=== PATIENT | male | born 1970 | race Caucasian/White ===

== ENCOUNTER 2024-12-31 08:01 | Inpatient (IN) ==
[2024-12-31 08:49] LABS: Basophils%(Percent) Auto 0.2 (0.0-1.3); Eosinophils%(Percent) Auto 0.1 % (0.0-4.0); Granulocytes % - Auto 83.9 % (49.1-73.1); Granulocytes#(Absolute)- Auto 7.5 (2.0-6.2); Hematocrit 39.7 % (41.3-50.1); Mean Corpuscular Volume 92.1 fl (81.9-96.5); Monocytes #(Absolute)- Auto 0.7 (0.2-0.8); Monocytes %(Percent)- Auto 7.8 % (4.5-10.7); Platelet Count 98 K/uL (142-355); White Blood Count 8.9 K/uL (3.7-9.6)
[2024-12-31] MEDS: KETOROLAC 30 MG/ML INJ VIAL IVP ONE (08:52)
[2024-12-31] MEDS: 0.9 % SODIUM CHLORIDE 500 ML IV ONE (08:53)
[2024-12-31] MEDS: 0.9 % SODIUM CHLORIDE 1000 ML 1,000 ML IV SCH ×2 (08:53→13:10)
[2024-12-31 08:59] LABS: Potassium 3.1 mmol/L (3.6-5.2)
--- NOTE | 2024-12-31 09:16 | Emergency Department Note ---
HPI - URI/Sore Throat General Chief Complaint: Fever Stated Complaint: FEVER Source: patient, family (sister) and medical record Limitations: no limitations History of Present Illness HPI Narrative: 54-year-old ER stay that has had over a week of cough fever and production of cough. 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 No other significant medical history did have adenoid septal surgery approximately a month ago complications at that time. Related Data Allergies Allergy/AdvReac Type Severity Reaction Status Date / Time erythromycin base Allergy Verified 12/31/24 08:43 Review of Systems Status of ROS 10 or more systems reviewed and unremark able except as noted in h istory and below Constitutional Reports: fever, chills, fatigue, malaise and change in sleep pattern; Denies: night sweats Eyes Denies: change in vision, blurry vision, blind spots, light sensitivity, eye discomfort or eye discharge Ears, nose, mouth, and throat Reports: dry mouth; Denies: throat pain, neck pain, throat swelling, difficulty swallowing, hoarseness, mouth pain, swelling of lips/tongue, ear discharge or change in hearing (CHRONIC HEARNG LOSS) Cardiovascular Denies: chest pain, palpitations, edema, swelling of feet/ankles, lightheadedness or shortness of breath with exertion Respiratory Reports: shortness of breath and cough; Denies: wheezing, stridor, pain on inspiration or change in phlegm color Gastrointestinal Reports: difficulty swallowing; Denies: abdominal pain, nausea, vomiting, coffee grounds in vomit, heartburn, diarrhea, constipation, bloating, feeling full early, change in bowel habits, painful bowel movements, rectal pain, rectal swelling or change in stool character Genitourinary Denies: painful urination, urinary frequency, urinary urgency, blood in urine, genital pain, genital lesion, penile discharge, testicular pain, testicular mass, scrotal swelling, difficulty urinating or decreased urine ouput Musculoskeletal Reports: back pain and muscle weakness (MUSCLE STIFFNESS); Denies: neck pain, extremity pain, extremity swelling or joint pain Integumentary/Breast Reports: nail changes; Denies: skin swelling, non-healing lesion, acne or breast swelling Neurological Reports: lack of coordination and difficulty communicating thoughts; Denies: involuntary movements Psychiatric Reports: mood swings and paranoia; Denies: panic attacks, suicidal ideation or homicidal ideation Endocrine Reports: fatigue; Denies: excessive urination, excessive thirst, cold intolerance, excessive sweating, flushing or heat intolerance Hematologic/Lymphatic Denies: easy bruising, easy bleeding or enlarged lymph nodes Allergic/Immunologic Denies: hives, throat swelling, tongue swelling, facial swelling, wheezing or itchy eyes PFSH PFS Medical History Chronic low back pain HTN (hypertension) Surgical History History of cholecystectomy Social History Feel stressed/tense/nervous/anxious/difficulty sleeping: to some extent Due to disability, difficulty making decisions: Yes Exam Constitutional: normal general appearance, no apparent distress, abnormal body habitus (obese), no limitations and alert Vital Signs - 24 hr 12/31/24 08:10 Temperature 101.3 F H Pulse Rate 114 H Respiratory Rate 20 Blood Pressure 123/76 Pulse Oximetry 98 Oxygen Delivery Me thod Room Air HENMT: normocephalic, head/scalp atraumatic, hearing grossly normal bilaterally, external ears normal, EACs normal, TMs abnormal, nasal mucous membranes abnormal (pale) and (nasal discharge), oral mucous membranes abnormal and oropharynx abnormal (erythema) Eyes: PERRL, EOMs intact bilaterally, conjunctivae normal, no scleral icterus, papilledema noted and periorbital findings normal Neck/C-Spine: visual inspection normal, trachea midline, cervical spine nontender, cervical full ROM noted, supple and thyroid normal Lymph: no lymphadenopathy noted and no lymphedema noted Chest: inspection of chest normal and palpation of chest normal Respiratory: breath sounds equal bilaterally, normal respiratory effort, clear to auscultation bilaterally, no wheezes, no rales, no retractions and no use of accessory muscles Cardiovascular: heart rate abnormal (tachycardic), regular rhythm noted, no gallop, no rub, no murmur, no JVD, no clicks, peripheral pulses 2+ throughout and no bruits noted Gastrointestinal: abdomen abnormal to inspection (obese), abdomen soft to palpation, nontender to palpation, nontender to percussion, nondistended, normoactive bowel sounds, no hepatosplenomegaly and no ascites Genitourinary: no CVA tenderness, bladder normal to palpation, penis normal and circumcised Back/Pelvis: spine normal to inspection, no thoracic spine tenderness, no lumbar spine tenderness, thoracic spine ROM normal and lumbar spine ROM normal Extremities: normal to inspection, normal to palpation, no tenderness, full ROM, no joint enlargement and no deformity Neurology: director state pharmacy II-XII intact, no movement abnormality noted, no focal motor deficit noted, sensory deficit noted, deep tendon reflexes 2+ bilaterally and gait abnormality noted Psychiatry: Mental Status Exam documented within this Exam's Psych section mental status grossly normal, oriented x3, thought process abnormality noted, cooperative, affect normal, psychomotor activity normal and memory normal Feel stressed/tense/nervous/anxious/difficulty sleeping: not at all Skin: skin color abnormal Reports (pale), no rash, no lesions, no ecchymosis noted, skin turgor abnormal Reports (tenting), no petechiae, no mottling, nails abnormality noted and alopecia noted Course Course Hospital Course: Patient's fever was 200 pounds at time of discharge, Heart rate improving down to the 102 patient states his improved although he still having chills and is appreciating the 1 morning. 9 out of 10 to a 2 out of 10 in his back. Patient's cough is improved Vital Signs Vital signs: Vital Signs Temperature 101.3 F H 12/31/24 08:10 Pulse Rate 114 H 12/31/24 08:10 Respiratory Rate 20 12/31/24 08:10 Blood Pressure 123/76 12/31/24 08:10 Pulse Oximetry 98 12/31/24 08:10 Oxygen Delivery Method Room Air 12/31/24 08:10 Temperature 101.3 F H 12/31/24 08:10 Pulse Rate 114 H 12/31/24 08:10 Respiratory Rate 20 12/31/24 08:10 Blood Pressure 123/76 12/31/24 08:10 Pulse Oximetry 98 12/31/24 08:10 Oxygen Delivery Method Room Air 12/31/24 08:10 MDM - URI/Sore Throat MDM Narrative Medical Decision Making Narrative: Patient has a smoking history, his sister history of sleep apnea COPD, obstructive airway, UTI, pyelonephritis, pain, Differential Diagnosis Upper Respiratory Differential Diagnosis: upper respiratory infection, otitis media, sinusitis, viral infection, bronchitis, influenza and pharyngitis Lab Data Attestation: I reviewed the patient's lab results. Labs: Lab Results 12/31/24 Range/Units 08:40 WBC 8.9 (3.7-9.6) K/uL RBC 4.3 L (4.40-5.80) M/uL Hgb 13.8 L (14.0-17.4) gm/dL Hct 39.7 L (41.3-50.1) % MCV 92.1 (81.9-96.5) fl MCH 32.1 (27.6-33.7) pg MCHC 34.9 (33.0-35.7) g/dl RDW 13.5 (11.0-14.8) % Plt Count 98 L (142-355) K/uL MPV 7.9 (6.0-10.4) fl Gran % 83.9 H (49.1-73.1) % Lymph % (Auto) 8.0 L (17.6-39.05) % [place] % (Auto) 7.8 (4.5-10.7) % Eos % (Auto) 0.1 (0.0-4.0) % Baso % (Auto) 0.2 (0.0-1.3) Lymph # (Auto) 0.7 L (0.8-2.9) [place] # (Auto) 0.7 (0.2-0.8) Eos # (Auto) 0.0 (0.0-0.3) Baso # (Auto) 0.0 (0.0-0.1) Absolute Gran (auto) 7.5 H (2.0-6.2) Sodium 135 L (136-145) mmol/L Potassium 3.1 L (3.6-5.2) mmol/L Chloride 100.0 (98-107) mmol/L Carbon Dioxide 24 (21-32) mmol/L Anion Gap 11.0 (4-14) mEq/L BUN 17 (7-18) mg/dL Creatinine 1.1 (0.6-1.3) mg/dL Estimated GFR 80.8 (>59.9) Glucose 109 (70-110) mg/dL Lactic Acid 1.1 (0.27-1.43) mmol/L Calcium 8.0 L (8.5-10.1) mg/dL Total Bilirubin 0.90 (0.0-1.0) mg/dL AST 12 L (15-37) U/L ALT 22 L (30-65) U/L Alkaline Phosphatase 62 (50-136) U/L Total Protein 6.0 L (6.4-8.2) g/dL Albumin 3.1 L (3.4-5.0) g/dL COVID-19 (PUSHPA) Not detected (Not Detectd) Influenza Type A Ag Negative (Negative) Influenza Type B Ag Negative (Negative) Respiratory Virus Ag Negative (Negative) Imaging Data Attestation imaging: I have reviewed the pertinent imaging results. Radiologist Impression: XR CHEST 2V HISTORY: cough, fever, dyspneacough, fever, dyspnea; COMPARISON: None FINDINGS: The trachea is midline. The cardiac silhouette is borderline in size. A moderate area of alveolar infiltrate is at right upper lobe. A 2.4 cm right lateral hilar lung mass is seen. The rest of lungs are clear without focal infiltrate or effusion. The bony thorax is unremarkable. IMPRESSION: Right upper lobe pneumonia with probable right hilar lung mass or adenopathy. Chest CT recommended. ECG Data Attestation ECG: I have reviewed the pertinent ECG results. Prior ECG tracings: not available for review Interpretation: EKG-sinus tachycardia, rate 104, RR 576, W[place] 163 Discharge Plan Discharge Condition: Stable Clinical Impression: Community acquired pneumonia, Adenopathy, hilar Time of Disposition: 09:52
[2024-12-31] MEDS ORDERED: ONDANSETRON HCL/PF 4 MG/2 ML VIAL INJ PRN (09:19)
[2024-12-31] MEDS ORDERED: DOCUSATE SODIUM 100 MG CAPSULE PO PRN (09:19)
[2024-12-31] MEDS ORDERED: MAGNESIUM, ALUMINUM HYDROXIDE 30 ML ORAL.SUSP PO PRN (09:19)
[2024-12-31] MEDS ORDERED: CEFTRIAXONE SODIUM 1 GM VIAL ONE (09:46)
[2024-12-31] MEDS ORDERED: 0.9 % SODIUM CHLORIDE MB+ 50 ML IV ONE (09:46)
[2024-12-31] MEDS: CEFTRIAXONE SODIUM 1 GM in 0.9 % SODIUM CHLORIDE MB+ 50 ML IV SCH (09:47)
[2024-12-31] MEDS ORDERED: IPRATROPIUM/ALBUTEROL SULFATE 3 ML AMPUL.NEB INH ONE (09:52)
[2024-12-31] MEDS ORDERED: BUDESONIDE 0.5 MG/2 ML AMPUL.NEB INH ONE (09:52)
[2024-12-31] MEDS ORDERED: POTASSIUM CHLORIDE 20 MEQ TAB.ER.PRT ONE (09:54)
[2024-12-31] MEDS: POTASSIUM CHLORIDE 20 MEQ TAB.ER.PRT PO ONE ×2 (09:55→12:00)
[2024-12-31 10:40] LABS: Urine Appearance CLEAR (CLEAR); Urine Blood NEGATIVE (NEG - TRACE); Urine Color YELLOW (STRAW/YELL.); Urine Urobilinogen Normal (NORMAL)
[2024-12-31] MEDS: ACETAMINOPHEN 500 MG TABLET PO PRN (12:00)
--- NOTE | 2024-12-31 12:02 | History & Physical Report ---
H&P: HPI History of Present Illness Chief complaint: pneumonia, hypokalemia Narrative: Mr. Sheila Shepherd is a 54-year-old male who was admitted after presenting to the ER with complaints of nonproductive cough, fever, and body aches. He reports he first began feeling sick 8 days ago on Saturday and it progressively got worse. He saw MAYDA Moss at [facility] on Saturday where he was diagnosed with an ear infection and given Rocephin, Toradol, and Decadron IM according to his sister. He does not have a regular PCP. He has been alternating Motrin and Tylenol at home but his fever has not subsided. He has a 30-year smoking history and stopped smoking approximately 3 years ago. He denies any known sick contacts. He reports a medical history of sleep apnea, HTN, polycythemia, and chronic low back pain. He does have a history of COVID. Temperature was 101.3 upon arrival to the ER. ER workup was completed. WBC normal at 8.9. Potassium 3.1 and patient was given 60mEq PO. Platelets 98,000. COVID/FLU negative. UA negative. Blood culture pending. Lactic acid 1.1. CXR completed and revealed right upper lobe pneumonia with probable right hilar mass or adenopathy. Chest CT recommended. Patient admitted for further evaluation and workup. After arriving to the floor, temperature spiked to 103.8 and he was given Tylenol 100mg PO. Patient began to exhibit signs of respiratory distress. ABG completed. D-Dimer 463. CTA chest to be completed today. Patient did improve upon later assessment. Review of Systems Status of ROS 10 or more systems reviewed and unremark able except as noted in history and below Constitutional Reports: fever, chills, fatigue, malaise and change in sleep pattern; Denies: night sweats Eyes Denies: change in vision, blurry vision, blind spots, light sensitivity, eye discomfort or eye discharge Ears, nose, mouth, and throat Reports: difficulty swallowing and dry mouth; Denies: throat pain, neck pain, throat swelling, hoarseness, mouth pain, swelling of lips/tongue, ear discharge or change in hearing (CHRONIC HEARNG LOSS) Cardiovascular Reports: shortness of breath with exertion; Denies: chest pain, palpitations, edema, swelling of feet/ankles or lightheadedness Respiratory Reports: shortness of breath and cough; Denies: wheezing, stridor, pain on inspiration or change in phlegm color Gastrointestinal Reports: difficulty swallowing; Denies: abdominal pain, nausea, vomiting, coffee grounds in vomit, heartburn, diarrhea, constipation, bloating, feeling full early, change in bowel habits, painful bowel movements, rectal pain, rectal swelling or change in stool character Genitourinary Denies: painful urination, urinary frequency, urinary urgency, blood in urine, genital pain, genital lesion, penile discharge, testicular pain, testicular mass, scrotal swelling, difficulty urinating or decreased urine ouput Musculoskeletal Reports: back pain and muscle weakness (MUSCLE STIFFNESS); Denies: neck pain, extremity pain, extremity swelling or joint pain Integumentary/Breast Reports: nail changes; Denies: skin swelling, non-healing lesion, acne or breast swelling Neurological Reports: lack of coordination and difficulty communicating thoughts; Denies: involuntary movements Psychiatric Reports: mood swings and paranoia; Denies: panic attacks, suicidal ideation or homicidal ideation Endocrine Reports: fatigue; Denies: excessive urination, excessive thirst, cold intolerance, excessive sweating, flushing or heat intolerance Hematologic/Lymphatic Denies: easy bruising, easy bleeding or enlarged lymph nodes Allergic/Immunologic Denies: hives, throat swelling, tongue swelling, facial swelling, wheezing or itchy eyes [facility] Medical History (Updated 12/31/24 @ 14:28 by Senthil Parr NP) Polycythemia Chronic low back pain HTN (hypertension) Surgical History History of cholecystectomy Social History Problems where you live: no known problems Highest level of school completed/degree received: high school Feel stressed/tense/nervous/anxious/difficulty sleeping: not at all Meds Home Medications and Allergies Home Medications Medication Instructions Recorded Confirmed Type buspirone 15 mg tablet 15 mg PO DAILY 12/31/2412/13 History doxazosin 4 mg tablet 4 mg PO DAILY 12/31/2412/31 History fluoxetine 20 mg capsule 20 mg PO BID 12/31/24 History gabapentin 100 mg capsule 100 mg PO BEDTIME 12/31/24 0 12/31/24 History hydrochlorothiazide 25 mg tablet 25 mg PO DAILY 12/31/24 History hydrocodone 10 mg-acetaminophen 1 tab PO DAILY PRN liz n (scale 12/31/24 12/31/24 History 325 mg tablet score 4-6) losartan 100 mg tablet 100 mg PO DAILY 12/31/24 History Allergies Allergy/AdvReac Type Severity Reaction Status Date / Time erythromycin base Allergy Verified 12/31/24 08:43 Exam Constitutional: normal general appearance Vital Signs - 24 hr 12/31/24 08:10 12/31/24 09:51 12/31/24 09:59 Temperature 101.3 F H 100.6 F H 100.6 F H Pulse Rate 114 H 101 H 101 H Respiratory Rate 20 18 18 Blood Pressure 123/76 124/69 124/69 Pulse Oximetry 98 98 98 Oxygen Delivery Me thod Room Air Room Air 12/31/24 10:00 12/31/24 10:00 Temperature Pulse Rate 103 H Respiratory Rate 18 Blood Pressure 134/75 Pulse Oximetry 95 99 Oxygen Delivery Me thod Room Air HENMT: normocephalic, head/scalp atraumatic, hearing grossly normal bilaterally and external ears normal Eyes: PERRL and EOMs intact bilaterally Neck/C-Spine: visual inspection normal and trachea midline Chest: inspection of chest normal and palpation of chest normal Respiratory: breath sounds equal bilaterally and no wheezes (+ wheeze and rhonchi bilaterally) Cardiovascular: normal heart rate noted, regular rhythm noted and peripheral pulses 2+ throughout Gastrointestinal: abdomen normal to inspection, abdomen soft to palpation, nontender to palpation, nontender to percussion, nondistended and normoactive bowel sounds Genitourinary: no CVA tenderness Back/Pelvis: spine normal to inspection Extremities: normal to inspection, normal to palpation, no tenderness and full ROM Neurology: 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 Admit 2. Continue Rocephin 3. D/C Azithromycin due to allergy, Add Doxycycline 4. D/C duonebs due to tachycardia, Add Xopenex 5. Tylenol for fever 6. Collect sputum for culture and gram stain 7. Maintenance fluids NS at 100ml/hr 8. Budesonide BID 9. Solumedrol IV Q8H 10. Supplemental Oxygen to maintain SpO2 > 92% Qualifiers: Laterality: right Lung location: upper lobe of lung Pneumonia type: due to unspecified organism Qualified Code(s): J18.9 - Pneumonia, unspecified organism Code(s): J18.9 - Pneumonia, unspecified organism (2) Elevated d-dimer: Assessment and Plan: 1. ABG 2. CTA chest PE protocol Code(s): R79.89 - Other specified abnormal findings of blood chemistry (3) HTN (hypertension): Assessment and Plan: 1. Resume home antihypertensive medications 2. Vital Signs Q4H Qualifiers: Hypertension type: unspecified Qualified Code(s): I10 - Essential (primary) hypertension Code(s): I10 - Essential (primary) hypertension (4) Hypokalemia: Assessment and Plan: 1. Repeat serial labs Code(s): E87.6 - Hypokalemia Results Labs Labs: CBC 12/31/24 Range/Units 08:40 WBC 8.9 (3.7-9.6) K/uL RBC 4.3 L (4.40-5.80) M/uL Hgb 13.8 L (14.0-17.4) gm/dL Hct 39.7 L (41.3-50.1) % Plt Count 98 L (142-355) K/uL Gran % 83.9 H (49.1-73.1) % Lymph % (Auto) 8.0 L (17.6-39.05) % [place] % (Auto) 7.8 (4.5-10.7) % Eos % (Auto) 0.1 (0.0-4.0) % Baso % (Auto) 0.2 (0.0-1.3) Lymph # (Auto) 0.7 L (0.8-2.9) [place] # (Auto) 0.7 (0.2-0.8) Eos # (Auto) 0.0 (0.0-0.3) Baso # (Auto) 0.0 (0.0-0.1) Absolute Gran (auto) 7.5 H (2.0-6.2) CMP 12/31/24 08:40 Sodium 135 L Potassium 3.1 L Chloride 100.0 Carbon Dioxide 24 BUN 17 Creatinine 1.1 Glucose 109 Calcium 8.0 L Liver Function 12/31/24 Range/Units 08:40 Total Bilirubin 0.90 (0.0-1.0) mg/dL AST 12 L (15-37) U/L ALT 22 L (30-65) U/L Alkaline Phosphatase 62 (50-136) U/L Albumin 3.1 L (3.4-5.0) g/dL Urine 12/31/24 08:20 Urine Color Yellow Urine Appearance Clear Ur Specific [place] 1.020 Urine Protein Negative Urine Glucose (UA) Normal ABG ABG results: ABG pH (7.35-7.45) 7.58H* ABG pCO2 (35-45mmHg) 22L* ABG pO2 (60-100mmHg) 46L* ABG pO2 122 ABG PO2/FiO2 Ratio 0.38 ABG HCO3 (22-26mmo1/L) 20.6L ABG Total CO2 21.3 ABG O2 Saturation (92-100%) 89L* ABG Base Excess (-2-2mmo1/L) 0.3 A-a O2 Gradient 76 Respiratory Index (0-1) 1.7H FiO2 21 Attestation: I have reviewed the pertinent ABG results. ECG Attestation: I have reviewed the pertinent ECG results. Imaging Imaging ordered: Chest x-ray Radiologist's impression: FINDINGS: The trachea is midline. The cardiac silhouette is borderline in size. A moderate area of alveolar infiltrate is at right upper lobe. A 2.4 cm right lateral hilar lung mass is seen. The rest of lungs are clear without focal infiltrate or effusion. The bony thorax is unremarkable. IMPRESSION: Right upper lobe pneumonia with probable right hilar lung mass or adenopathy. Chest CT recommended.
[2024-12-31] MEDS: IPRATROPIUM/ALBUTEROL SULFATE 3 ML AMPUL.NEB INH SCH (12:37)
[2024-12-31] MEDS ORDERED: KETOROLAC 30 MG/ML INJ VIAL IVP PRN (13:00)
[2024-12-31] MEDS: METHYLPREDNISOLONE SOD SUCC/PF 40 MG/ML VIAL INJ SCH (13:10)
[2024-12-31] MEDS: DOXYCYCLINE HYCLATE 100 MG in 0.9 % SODIUM CHLORIDE MB+ 100 ML IV SCH (13:11)
[2024-12-31] MEDS: PANTOPRAZOLE SODIUM 40 MG TABLET.DR PO SCH (13:11)
[2024-12-31] MEDS: AZITHROMYCIN 500 MG 500 MG in 0.9 % SODIUM CHLORIDE 250 ML IV SCH (13:15)
[2024-12-31] MEDS: MORPHINE SULFATE 2 MG/ML CARTRIDGE IV PRN (13:27)
[2024-12-31 13:39] LABS: Base Excess ABG 0.3 mmo1/L (-2-2); Oxygen Saturation ABG 89 % (92-100); PCO2 ABG 22 mmHg (35-45); PO2 ABG 46 mmHg (60-100); pH ABG 7.58 (7.35-7.45)
[2024-12-31] MEDS: levalbuterol HCL 1.25 MG/3 ML VIAL.NEB INH SCH (15:45)
[2024-12-31] MEDS: BUDESONIDE 0.5 MG/2 ML AMPUL.NEB INH SCH (20:41)
[2025-01-01 06:13] LABS: Basophils%(Percent) Auto 0.2 (0.0-1.3); Granulocytes#(Absolute)- Auto 8.6 (2.0-6.2); Hematocrit 39.3 % (41.3-50.1); Mean Corpuscular Volume 91.8 fl (81.9-96.5); Monocytes #(Absolute)- Auto 0.3 (0.2-0.8); Monocytes %(Percent)- Auto 2.7 % (4.5-10.7); Platelet Count 109 K/uL (142-355); White Blood Count 9.2 K/uL (3.7-9.6)
[2025-01-01 06:30] LABS: Potassium 3.4 mmol/L (3.6-5.2)
[2025-01-01] MEDS: MAGNESIUM OXIDE 400 MG TABLET PO ONE (09:29)
[2025-01-01] MEDS: POTASSIUM CHLORIDE 20 MEQ TAB.ER.PRT PO ONE (09:30)
[2025-01-01] MEDS: POTASSIUM PHOSPHATE 500 MG TABLET.SOL PO ONE ×2 (09:30→10:14)
[2025-01-01] MEDS: MAGNESIUM OXIDE 400 MG TABLET ONE (10:11)
[2025-01-01] MEDS: POTASSIUM CHLORIDE 20 MEQ TAB.ER.PRT ONE (10:14)
--- NOTE | 2025-01-01 17:38 | Progress Note ---
Progress Note: Subjective Subjective Interval history: febrile intermittently and difficulty breathing. Back pain that is a chronic issue is worse today Exam Constitutional: abnormal general appearance (disheveled), no apparent dist ress, abnormal body habitus (obese), no limitations and alert Vital Signs - 24 hr 12/31/24 19:59 12/31/24 20:42 12/31/24 23:52 Temperature 99.6 F 99.6 F Pulse Rate [Left B rachial] 104 H 116 H Respiratory Rate 21 20 Blood Pressure [Le ft Arm] 125/77 106/52 Pulse Oximetry 96 96 97 Oxygen Delivery Me thod Room Air Room Air 01/01/25 03:33 01/01/25 06:22 01/01/25 07:11 Temperature 97.8 F Pulse Rate [Left B rachial] 105 H Respiratory Rate 20 Blood Pressure [Le ft Arm] 112/55 Pulse Oximetry 96 98 98 Oxygen Delivery Mt thod Room Air 01/01/25 08:00 01/01/25 13:36 01/01/25 16:00 Temperature 97.8 F 98.0 F Pulse Rate [Left B rachial] 95 H 82 Respiratory Rate 19 19 Blood Pressure [Le ft Arm] 132/68 115/73 Pulse Oximetry 99 98 100 Oxygen Delivery Me thod Room Air Room Air HENMT: normocephalic, head/scalp atraumatic, hearing grossly abnormal, external ears normal, oral mucous membranes normal, oropharynx abnormal (erythema), dentition abnormal and gingiva normal Eyes: PERRL, EOMs intact bilaterally, conjunctivae normal, no scleral icterus, papilledema noted and periorbital findings normal Neck/C-Spine: abnormal to visual inspection, trachea midline, cervical spine nontender, cervical full ROM noted, supple, no meningeal signs, thyroid normal and no carotid bruits Lymph: no lymphadenopathy noted and no lymphedema noted Chest: inspection of chest normal and palpation of chest normal Respiratory: breath sounds unequal (deminished left), normal respiratory effort (labored if moves around the room), auscultation abnormal (diminished breath sound) (left), wheezing noted (+ wheeze and rhonchi bilaterally louder today and better air movement), no rales, no retractions, no use of accessory muscles and chest percussion normal Cardiovascular: heart rate abnormal, regular rhythm noted, no gallop, no rub and peripheral pulses 2+ throughout Gastrointestinal: abdomen abnormal to inspection (obese), abdomen soft to palpation, nontender to palpation, nondistended, normoactive bowel sounds, hepatosplenomegaly noted, no masses, no pulsatile mass, no ascites and no hernia Genitourinary: no CVA tenderness and bladder normal to palpation Back/Pelvis: spine abnormal to inspection, no thoracic spine tenderness, lumbar spine tenderness noted, thoracic spine ROM normal and lumbar spine ROM abnormal Extremities: normal to inspection, normal to palpation, no tenderness and full ROM 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, no movement abnormality noted, no focal motor deficit noted, no sensory deficits noted, deep tendon reflexes 2+ bilaterally, gait normal, speech normal, coordination normal and GCS normal Psychiatry: Mental Status Exam documented within this Exam's Psych section mental status grossly normal, oriented x3, thought process normal, cooperative, affect normal, psychomotor activity normal and memory normal Feel s tressed/tense/nervous/anxious/difficulty sleeping: to some extent Life stressor details: abnormal xray and missing work Skin: skin color abnormal Reports (pale), no rash, no lesions, no ecchymosis noted, no wounds, no lacerations, skin turgor normal, no jaundice, no petechiae, no mottling, nails abnormality noted and alopecia noted Progress Note: Objective Labs Labs: CBC 01/01/25 Range/Units 05:45 WBC 9.2 (3.7-9.6) K/uL RBC 4.3 L (4.40-5.80) M/uL Hgb 13.8 L (14.0-17.4) gm/dL Hct 39.3 L (41.3-50.1) % Plt Count 109 L (142-355) K/uL Gran % 93.0 H (49.1-73.1) % Lymph % (Auto) 4.1 L (17.6-39.05) % [place] % (Auto) 2.7 L (4.5-10.7) % Eos % (Auto) 0.0 (0.0-4.0) % Baso % (Auto) 0.2 (0.0-1.3) Lymph # (Auto) 0.4 L (0.8-2.9) [place] # (Auto) 0.3 (0.2-0.8) Eos # (Auto) 0.0 (0.0-0.3) Baso # (Auto) 0.0 (0.0-0.1) Absolute Gran (auto) 8.6 H (2.0-6.2) CMP 01/01/25 05:45 Sodium 138 Potassium 3.4 L Chloride 104.0 Carbon Dioxide 22 BUN 10 Creatinine 1.0 Glucose 164 H Calcium 8.2 L Liver Function 01/01/25 Range/Units 05:45 Total Bilirubin 1.10 H (0.0-1.0) mg/dL AST 14 L (15-37) U/L ALT 22 L (30-65) U/L Alkaline Phosphatase 57 (50-136) U/L Albumin 3.0 L (3.4-5.0) g/dL Urine 12/31/24 08:20 Urine Color Yellow Urine Appearance Clear Ur Specific [place] 1.020 Urine Protein Negative Urine Glucose (UA) Normal Progress Note: A&P Assessment and Plan (1) Pneumonia: Assessment and Plan: 1. Admit 2. Continue Rocephin 3. D/C Azithromycin due to allergy, Add Doxycycline 4. D/C duonebs due to tachycardia, Add Xopenex 5. Tylenol for fever 6. Collect sputum for culture and gram stain 7. Maintenance fluids NS at 100ml/hr 8. Budesonide BID 9. Solumedrol IV Q8H 10. Supplemental Oxygen to maintain SpO2 > 92% Qualifiers: Laterality: right Lung location: upper lobe of lung Pneumonia type: due to unspecified organism Qualified Code(s): J18.9 - Pneumonia, unspecified organism (2) Elevated d-dimer: Assessment and Plan: 1. ABG 2. CTA chest PE protocol (3) HTN (hypertension): Assessment and Plan: 1. Resume home antihypertensive medications 2. Vital Signs Q4H Qualifiers: Hypertension type: unspecified Qualified Code(s): I10 - Essential (primary) hypertension (4) Hypokalemia: Assessment and Plan: 1. Repeat serial labs (5) Hypoalbuminemia: (6) Anemia: Fall Risk Details Tucker Fall Scale Risk Level: Moderate Fall Risk Current Medications: Current Medications Acetaminophen (Acetaminophen 500 Mg Tablet) 1,000 mg PO Q4H PRN PRN Reason: Fever OF 100.5 OR GREATER Last Admin: 01/01/25 15:55 Dose: 1,000 mg Budesonide (Budesonide 0.5 Mg/2 Ml Ampul.Neb) 0.5 mg INH RBID [facility] Last Admin: 01/01/25 07:11 Dose: 0.5 mg Docusate Sodium (Docusate Sodium 100 Mg Capsule) 100 mg PO DAILY PRN PRN Reason: Constipation Sodium Chloride (Sodium Chloride) 1,000 mls @ 100 mls/hr IV CONT [facility] Last Admin: 01/01/25 15:55 Dose: 100 mls/hr Ceftriaxone Sodium 1 gm/ (Sodium Chloride) 50 mls @ 100 mls/hr IV Q12H [facility] Last Infusion: 01/01/25 10:39 Dose: Infused Doxycycline Hyclate 100 mg/ (Sodium Chloride) 100 mls @ 100 mls/hr IV BID [facility] Last Infusion: 01/01/25 11:06 Dose: Infused Ketorolac Tromethamine (Ketorolac 30 Mg/Ml Inj Vial) 30 mg IVP Q8H PRN PRN Reason: Moderate Pain SCALE 5-7 Stop: 01/05/25 12:59 Levalbuterol HCl (Levalbuterol Hcl 1.25 Mg/3 Ml Vial.Neb) 1.25 mg INH RQ6 [facility] Last Admin: 01/01/25 13:36 Dose: 1.25 mg Magnesium Hydroxide (Magnesium, Aluminum Hydroxide 30 Ml Oral.Susp) 30 ml PO DAILY PRN PRN Reason: Constipation Methylprednisolone Sodium Succinate (Methylprednisolone Sod Succ/Pf 40 Mg/Ml Vial) 40 mg INJ Q8H [facility] Last Admin: 01/01/25 10:33 Dose: 40 mg Morphine Sulfate (Morphine Sulfate 2 Mg/Ml Cartridge) 2 mg IV Q2H PRN PRN Reason: Moderate Pain SCALE 5-7 Last Admin: 01/01/25 01:38 Dose: 2 mg Ondansetron HCl (Ondansetron Hcl/Pf 4 Mg/2 Ml Vial) 4 mg INJ Q6H PRN PRN Reason: Nausea And Vomiting Pantoprazole Sodium (Pantoprazole Sodium 40 Mg Tablet.Dr) 40 mg PO DAILY [facility] Last Admin: 01/01/25 09:29 Dose: 40 mg Time Spent With Patient Time: Total time spent is greater than 50% in coordination of care (as documented) at patient's floor/unit and/or counseling patient: Time with patient: greater than 35 minutes
[2025-01-02 06:52] LABS: Basophils #(Absolute) Auto 0.1 (0.0-0.1); Basophils%(Percent) Auto 1.2 (0.0-1.3); Eosinophils#(Absolute)Auto 0.4 (0.0-0.3); Eosinophils%(Percent) Auto 4.4 % (0.0-4.0); Granulocytes % - Auto 54.8 % (49.1-73.1); Granulocytes#(Absolute)- Auto 4.5 (2.0-6.2); Hematocrit 43.9 % (41.3-50.1); Mean Corpuscular Volume 82.9 fl (81.9-96.5); Monocytes #(Absolute)- Auto 0.9 (0.2-0.8); Monocytes %(Percent)- Auto 10.9 % (4.5-10.7); Platelet Count 275 K/uL (142-355); White Blood Count 8.1 K/uL (3.7-9.6)
[2025-01-02 07:58] LABS: Potassium 3.8 mmol/L (3.6-5.2)
[2025-01-02] MEDS: FLUOXETINE HCL 20 MG CAPSULE PO SCH (18:41)
[2025-01-03 11:53] VITALS: BP 123/68; PULSE 71; RESP 19; TEMP 98.4
--- NOTE | 2025-01-03 12:43 | Progress Note ---
Exam Constitutional: Vital Signs - 24 hr 01/02/25 14:19 01/02/25 16:00 01/02/25 20:00 Temperature 97.1 F L 98.8 F Pulse Rate [Left B rachial] 91 H 83 Respiratory Rate 19 19 Blood Pressure [Le ft Arm] 138/70 119/66 Pulse Oximetry 95 96 99 Oxygen Delivery Me thod Room Air Room Air 01/02/25 20:17 01/02/25 23:42 01/03/25 02:48 Temperature 98.4 F Pulse Rate [Left B rachial] 81 Respiratory Rate 17 Blood Pressure [Le ft Arm] 115/64 Pulse Oximetry 97 95 97 Oxygen Delivery Me thod Room Air 01/03/25 03:48 01/03/25 07:24 01/03/25 08:00 Temperature 97.6 F 98.2 F Pulse Rate [Left B rachial] 81 93 H Respiratory Rate 18 18 Blood Pressure [Le ft Arm] 113/65 146/79 Pulse Oximetry 95 94 L 96 Oxygen Delivery Me thod Room Air Room Air 01/03/25 11:52 Temperature 98.4 F Pulse Rate [Left B rachial] 71 Respiratory Rate 19 Blood Pressure [Le ft Arm] 123/68 Pulse Oximetry 99 Oxygen Delivery Me thod Room Air Progress Note: Objective Labs Labs: Urine 12/31/24 08:20 Urine Color Yellow Urine Appearance Clear Ur Specific [place] 1.020 Urine Protein Negative Urine Glucose (UA) Normal Pulse Oximetry Attestation: I have reviewed the pertinent pulse oximetry results. Imaging Chest x-ray: Attestation: I have reviewed the pertinent imaging results. Radiologist's impression: [place] [address] XRay Report Signed Patient: Sheila Shepherd MR#: [id number] : 1970 Acct:[id number] Age/Sex: 54 / M ADM Date: 12/31/24 Loc: [place] 1111-[address]: Senthil Parr NP Ordering Physician: Cierra Posey DO Date of Service: 01/03/25 Procedure(s): XR chest 2V Accession Number(s): [id number] cc: Senthil Parr NP; Cierra Posey DO~ EXAMINATION: XR CHEST 2V HISTORY: PneumoniaPneumonia; . COMPARISON STUDY: Chest x-ray 12/31/2024 TECHNIQUE: Two views of the chest frontal and lateral projections. FINDINGS: Infiltrate in the right upper lobe contiguous with the major fissure has decreased between exams. The lungs are expanded. Borderline cardiac silhouette enlargement. Normal pulmonary vascular pattern. CP angles are sharp. Bones are intact. IMPRESSION: Dense infiltrate in the right upper lobe has decreased between exams. Recommend close clinical correlation and follow-up until there has been complete resolution. Progress Note: A&P Assessment and Plan (1) Pneumonia: Assessment and Plan: 1. Admit 2. Continue Rocephin 3. D/C Azithromycin due to allergy, Add Doxycycline 4. D/C duonebs due to tachycardia, Add Xopenex 5. Tylenol for fever 6. Collect sputum for culture and gram stain 7. Maintenance fluids NS at 100ml/hr 8. Budesonide BID 9. Solumedrol IV Q8H 10. Supplemental Oxygen to maintain SpO2 > 92% Qualifiers: Pneumonia type: due to unspecified organism Laterality: right Lung location: upper lobe of lung Qualified Code(s): J18.9 - Pneumonia, unspecified organism (2) Elevated d-dimer: Assessment and Plan: 1. ABG 2. CTA chest PE protocol (3) HTN (hypertension): Assessment and Plan: 1. Resume home antihypertensive medications 2. Vital Signs Q4H Qualifiers: Hypertension type: unspecified Qualified Code(s): I10 - Essential (primary) hypertension (4) Hypokalemia: Assessment and Plan: 1. Repeat serial labs Fall Risk Details Tucker Fall Scale Risk Level: Moderate Fall Risk Current Medications: Current Medications Acetaminophen (Acetaminophen 500 Mg Tablet) 1,000 mg PO Q4H PRN PRN Reason: Fever OF 100.5 OR GREATER Last Admin: 01/03/25 08:55 Dose: 1,000 mg Budesonide (Budesonide 0.5 Mg/2 Ml Ampul.Neb) 0.5 mg INH RBID [facility] Last Admin: 01/03/25 07:23 Dose: 0.5 mg Docusate Sodium (Docusate Sodium 100 Mg Capsule) 100 mg PO DAILY PRN PRN Reason: Constipation Fluoxetine HCl (Fluoxetine Hcl 20 Mg Capsule) 20 mg PO DAILY [facility] Last Admin: 01/03/25 08:12 Dose: 20 mg Ceftriaxone Sodium 1 gm/ (Sodium Chloride) 50 mls @ 100 mls/hr IV Q12H [facility] Last Infusion: 01/03/25 09:26 Dose: Infused Doxycycline Hyclate 100 mg/ (Sodium Chloride) 100 mls @ 100 mls/hr IV BID [facility] Last Infusion: 01/03/25 09:04 Dose: Infused Ketorolac Tromethamine (Ketorolac 30 Mg/Ml Inj Vial) 30 mg IVP Q8H PRN PRN Reason: Moderate Pain SCALE 5-7 Stop: 01/05/25 12:59 Levalbuterol HCl (Levalbuterol Hcl 1.25 Mg/3 Ml Vial.Neb) 1.25 mg INH RQ6 [facility] Last Admin: 01/03/25 07:23 Dose: 1.25 mg Magnesium Hydroxide (Magnesium, Aluminum Hydroxide 30 Ml Oral.Susp) 30 ml PO DAILY PRN PRN Reason: Constipation Methylprednisolone Sodium Succinate (Methylprednisolone Sod Succ/Pf 40 Mg/Ml Vial) 40 mg INJ Q8H [facility] Last Admin: 01/03/25 09:04 Dose: 40 mg Morphine Sulfate (Morphine Sulfate 2 Mg/Ml Cartridge) 2 mg IV Q2H PRN PRN Reason: Moderate Pain SCALE 5-7 Last Admin: 01/01/25 01:38 Dose: 2 mg Ondansetron HCl (Ondansetron Hcl/Pf 4 Mg/2 Ml Vial) 4 mg INJ Q6H PRN PRN Reason: Nausea And Vomiting Pantoprazole Sodium (Pantoprazole Sodium 40 Mg Tablet.Dr) 40 mg PO DAILY [facility] Last Admin: 01/03/25 08:12 Dose: 40 mg Time Spent With Patient Time: Total time spent is greater than 50% in coordination of care (as documented) at patient's floor/unit and/or counseling patient:
[2025-01-03 14:09] LABS: Basophils%(Percent) Auto 0.1 (0.0-1.3); Granulocytes#(Absolute)- Auto 14.9 (2.0-6.2); Hematocrit 39.1 % (41.3-50.1); Mean Corpuscular Volume 91.7 fl (81.9-96.5); Monocytes #(Absolute)- Auto 0.6 (0.2-0.8); Platelet Count 228 K/uL (142-355); White Blood Count 16.2 K/uL (3.7-9.6)
[2025-01-03 14:39] LABS: Potassium 3.6 mmol/L (3.6-5.2)
--- NOTE | 2025-01-03 15:14 | Discharge Summary ---
DS: Providers Provider Date of admission: 12/31/24 09:20 Primary care physician: Cierra Posey DO Admitting clinician: Cierra Posey Attending physician on admission: Senthil Parr Consults: 12/31/24 09:30 Consult to Physical Therapy Routine Comment: Consulting Provider: Reason for consultation: pneumonia Physician Instructions: evaluate and treat Attending physician on discharge: Cierra Posey Discharging clinician: Cierra Posey DS: Diagnosis Discharge Diagnosis (1) Pneumonia: Qualifiers: Laterality: right Lung location: upper lobe of lung Pneumonia type: due to unspecified organism Qualified Code(s): J18.9 - Pneumonia, unspecified organism (2) Elevated d-dimer: (3) HTN (hypertension): Qualifiers: Hypertension type: unspecified Qualified Code(s): I10 - Essential (primary) hypertension (4) Hypokalemia: (5) Hypoalbuminemia: (6) Anemia: DS: Summary Hospital Course Hospital Course: Patient's fever resolved at time of discharge since early am 01/02/2025, Heart rate improving down with fever resolution and improved pneumonia and better hydration less than 100 since 01/02/2025. patient states sill easily short of breath with exertion or cough. 9 out of 10 to a 2 out of 10 in his back on discharge. Patient's cough is improved potassium and mag and phos corrected per the protocol. patient tolerated rocephin and zithromax and PT chest percussions and Incentative spirometer used when reminded. has no desire to smoke since he stopped 3 years ago Time spent discussing smoking cessation with patient: 3 to 10 minutes Status at Discharge Functional status at discharge: independent ambulation Overall status at discharge: patient is progressing back to baseline Time Spent with Patient Time attestation: Total time spent providing and/or coordinating discharge services: 48 Time spent: greater than 30 minutes Exam Constitutional: normal general appearance (dressed and bathed ), no apparent distress, abnormal body habitus (obese), no limitations and alert Vital Signs - 24 hr 01/02/25 16:00 01/02/25 20:00 01/02/25 20:17 Temperature 97.1 F L 98.8 F Pulse Rate [Left B rachial] 91 H 83 Respiratory Rate 19 19 Blood Pressure [Le ft Arm] 138/70 119/66 Pulse Oximetry 96 99 97 Oxygen Delivery Me thod Room Air Room Air 01/02/25 23:42 01/03/25 02:48 01/03/25 03:48 Temperature 98.4 F 97.6 F Pulse Rate [Left B rachial] 81 81 Respiratory Rate 17 18 Blood Pressure [Le ft Arm] 115/64 113/65 Pulse Oximetry 95 97 95 Oxygen Delivery Me thod Room Air Room Air 01/03/25 07:24 01/03/25 08:00 01/03/25 11:52 Temperature 98.2 F 98.4 F Pulse Rate [Left B rachial] 93 H 71 Respiratory Rate 18 19 Blood Pressure [Le ft Arm] 146/79 123/68 Pulse Oximetry 94 L 96 99 Oxygen Delivery Me thod Room Air Room Air 01/03/25 14:00 Temperature Pulse Rate [Left B rachial] Respiratory Rate Blood Pressure [Le ft Arm] Pulse Oximetry 95 Oxygen Delivery Me thod HENMT: normocephalic, head/scalp atraumatic, hearing grossly abnormal, external ears normal, oral mucous membranes normal, oropharynx normal, dentition abnormal and gingiva normal Eyes: PERRL, EOMs intact bilaterally, conjunctivae normal, no scleral icterus, papilledema noted and periorbital findings normal Neck/C-Spine: abnormal to visual inspection, trachea midline, cervical spine nontender, cervical full ROM noted, supple, no meningeal signs, thyroid normal and no carotid bruits Lymph: no lymphadenopathy noted and no lymphedema noted Chest: inspection of chest normal and palpation of chest normal Respiratory: breath sounds equal bilaterally (deminished left), normal respiratory effort (labored if moves around the room), auscultation abnormal (diminished breath sound) (left), wheezing noted (+ wheeze and rhonchi bilaterally louder today and better air movement), no rales, no retractions, no use of accessory muscles and chest percussion normal Cardiovascular: normal heart rate noted, regular rhythm noted, no gallop, no rub and peripheral pulses 2+ throughout Gastrointestinal: abdomen abnormal to inspection (obese), abdomen soft to palpation, nontender to palpation, nondistended, normoactive bowel sounds, hepatosplenomegaly noted, no masses, no pulsatile mass, no ascites and no hernia Genitourinary: no CVA tenderness and bladder normal to palpation Back/Pelvis: spine abnormal to inspection, no thoracic spine tenderness, lumbar spine tenderness noted, thoracic spine ROM normal and lumbar spine ROM abnormal Extremities: normal to inspection, normal to palpation, no tenderness and full ROM 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, no movement abnormality noted, no focal motor deficit noted, no sensory deficits noted, deep tendon reflexes 2+ bilaterally, gait normal, speech normal, coordination normal and GCS normal Psychiatry: Mental Status Exam documented within this Exam's Psych section mental status grossly normal, oriented x3, thought process normal, cooperative, affect normal, psychomotor activity normal and memory normal Feel stressed/tense/nervous/anxious/difficulty sleeping: only a little Life stressor details: missing work Skin: skin color normal, no rash, no lesions, no ecchymosis noted, no wounds, no lacerations, skin turgor normal, no jaundice, no petechiae, no mottling, nails abnormality noted and alopecia noted DS: Data Data Completed and Pending Labs on day of discharge: Labs from last 24 hours 01/03/25 13:55 WBC 16.2 H D RBC 4.3 L Hgb 13.5 L Hct 39.1 L MCV 91.7 MCH 31.7 MCHC 34.6 RDW 13.9 Plt Count 228 MPV 8.0 Gran % 92.0 H Lymph % (Auto) 3.9 L [place] % (Auto) 4.0 L Eos % (Auto) 0.0 Baso % (Auto) 0.1 Lymph # (Auto) 0.6 L [place] # (Auto) 0.6 Eos # (Auto) 0.0 Baso # (Auto) 0.0 Absolute Gran (auto) 14.9 H Sodium 144 Potassium 3.6 Chloride 110.0 H Carbon Dioxide 22 Anion Gap 12.0 BUN 23 H Creatinine 1.0 Estimated GFR 90.6 Glucose 157 H Calcium 8.8 Phosphorus 2.7 Magnesium 2.4 Total Bilirubin 0.44 AST 19 ALT 48 Alkaline Phosphatase 53 B-Natriuretic Peptide 72.8 Total Protein 6.1 L Albumin 3.0 L Preliminary micro results at discharge 12/31/24 08:40 Blood Culture - Preliminary Blood - Venous Draw (Peripheral) 12/31/24 08:40 Blood Culture - Preliminary Blood - Venous Draw (Peripheral) Imaging Chest x-ray: Attestation: I have reviewed the pertinent imaging results. Radiologist's impression: XR CHEST 2V HISTORY: PneumoniaPneumonia; . COMPARISON STUDY: Chest x-ray 12/31/2024 TECHNIQUE: Two views of the chest frontal and lateral projections. FINDINGS: Infiltrate in the right upper lobe contiguous with the major fissure has decreased between exams. The lungs are expanded. Borderline cardiac silhouette enlargement. Normal pulmonary vascular pattern. CP angles are sharp. Bones are intact. IMPRESSION: Dense infiltrate in the right upper lobe has decreased between exams. Recommend close clinical correlation and follow-up until there has been complete resolution. Discharge Plan Discharge Disposition: Home, Self-Care Condition: Improved Discharge Medications: New levofloxacin 500 mg tablet 500 mg PO DAILY Qty: 7 0RF Continued buspirone 15 mg tablet 15 mg PO DAILY doxazosin 4 mg tablet 4 mg PO DAILY fluoxetine 20 mg capsule 20 mg PO BID gabapentin 100 mg capsule 100 mg PO BEDTIME hydrochlorothiazide 25 mg tablet 25 mg PO DAILY losartan 100 mg tablet 100 mg PO DAILY hydrocodone-acetaminophen 10-325 mg tablet 1 tab PO DAILY PRN (Reason: pain (scale score 4-6)) Discharge Orders: Discharge Order (Routine); Ordered 01/03/25 Ordered By: Cierra Posey Activity: increase activity as tolerated Activity Detail: avoid heat Diet: low fat, low cholesterol and low salt diet Diet Detail: increase water and zero calorie electrolyte drinks in daily diet Interventions: Discharge Assessment Last Done: 01/03/25 15:27 MED/SURG & ICU Observation Charge Sheet Last Done: 01/03/25 15:25 Patient Instructions: Pneumonia (GEN) Activity Restrictions/Additional Instructions: increase water and zero calorie electrolyte drinks in daily diet avoid heat needs 4 weeks off work to avoid heat and do pulmonary rehab follow up PCP in 5-7 days and return to ER or PCP janeen with fevers, trouble breathing or any concerns or questions Forms: Portal/Health Info Access Inst Follow-Ups: Cierra Posey DO [Primary Care Provider, Medical] Discharge Date/Time: 01/03/25 15:53
--- NOTE | 2025-01-03 15:16 | Progress Note ---
Progress Note: Subjective Subjective Interval history: still coughing but breathing improved and relieved CT does not confirm a mass. no fever since last PM. Exam Constitutional: abnormal general appearance (disheveled), no apparent distress, abnormal body habitus (obese), no limitations and alert Vital Signs - 24 hr 01/02/25 16:00 01/02/25 20:00 01/02/25 20:17 Temperature 97.1 F L 98.8 F Pulse Rate [Left B rachial] 91 H 83 Respiratory Rate 19 19 Blood Pressure [Le ft Arm] 138/70 119/66 Pulse Oximetry 96 99 97 Oxygen Delivery Me thod Room Air Room Air 01/02/25 23:42 01/03/25 02:48 01/03/25 03:48 Temperature 98.4 F 97.6 F Pulse Rate [Left B rachial] 81 81 Respiratory Rate 17 18 Blood Pressure [Le ft Arm] 115/64 113/65 Pulse Oximetry 95 97 95 Oxygen Delivery Me thod Room Air Room Air 01/03/25 07:24 01/03/25 08:00 01/03/25 11:52 Temperature 98.2 F 98.4 F Pulse Rate [Left B rachial] 93 H 71 Respiratory Rate 18 19 Blood Pressure [Le ft Arm] 146/79 123/68 Pulse Oximetry 94 L 96 99 Oxygen Delivery Me thod Room Air Room Air 01/03/25 14:00 Temperature Pulse Rate [Left B rachial] Respiratory Rate Blood Pressure [Le ft Arm] Pulse Oximetry 95 Oxygen Delivery Me thod HENMT: normocephalic, head/scalp atraumatic, hearing grossly abnormal, external ears normal, oral mucous membranes normal, oropharynx abnormal (erythema), dentition abnormal and gingiva normal Eyes: PERRL, EOMs intact bilaterally, conjunctivae normal, no scleral icterus, papilledema noted and periorbital findings normal Neck/C-Spine: visual inspection normal, trachea midline, cervical spine n ontender, cervical full ROM noted, supple, no meningeal signs, thyroid normal and no carotid bruits Lymph: no lymphadenopathy noted and no lymphedema noted Chest: inspection of chest normal and palpation of chest normal Respiratory: breath sounds unequal (deminished left), normal respiratory effort (labored if moves around the room), auscultation abnormal (diminished breath sound) (left), wheezing noted (+ wheeze and rhonchi bilaterally), no rales, no retractions, no use of accessory muscles and chest percussion normal Cardiovascular: normal heart rate noted, regular rhythm noted and peripheral pulses 2+ throughout Gastrointestinal: abdomen normal to inspection, abdomen soft to palpation, nontender to palpation, nondistended, normoactive bowel sounds, hepatosplenomegaly noted, no masses, no pulsatile mass, no ascites and no hernia Genitourinary: no CVA tenderness and bladder normal to palpation Back/Pelvis: spine abnormal to inspection, no thoracic spine tenderness, lumbar spine tenderness noted, thoracic spine ROM normal and lumbar spine ROM abnormal Extremities: normal to inspection, normal to palpation, no tenderness and full ROM Neurology: 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, no movement abnormality noted, no focal motor deficit noted, no sensory deficits noted, deep tendon reflexes 2+ bilaterally, gait normal, speech normal, coordination normal and GCS normal Psychiatry: Mental Status Exam documented within this Exam's Psych section mental status grossly normal, oriented x3, thought process normal, cooperative, affect normal, psychomotor activity normal and memory normal Feel stressed/tense/nervous/anxious/difficulty sleeping: to some extent Life stressor details: abnormal xray and missing work Skin: skin color abnormal (flushed), no rash, no lesions, no ecchymosis noted, no wounds, no lacerations, skin turgor normal, no jaundice, no petechiae, no mottling, nails abnormality noted and alopecia noted Progress Note: Objective Labs Labs: CBC 01/03/25 Range/Units 13:55 WBC 16.2 H D (3.7-9.6) K/uL RBC 4.3 L (4.40-5.80) M/uL Hgb 13.5 L (14.0-17.4) gm/dL Hct 39.1 L (41.3-50.1) % Plt Count 228 (142-355) K/uL Gran % 92.0 H (49.1-73.1) % Lymph % (Auto) 3.9 L (17.6-39.05) % [place] % (Auto) 4.0 L (4.5-10.7) % Eos % (Auto) 0.0 (0.0-4.0) % Baso % (Auto) 0.1 (0.0-1.3) Lymph # (Auto) 0.6 L (0.8-2.9) [place] # (Auto) 0.6 (0.2-0.8) Eos # (Auto) 0.0 (0.0-0.3) Baso # (Auto) 0.0 (0.0-0.1) Absolute Gran (auto) 14.9 H (2.0-6.2) CMP 01/03/25 13:55 Sodium 144 Potassium 3.6 Chloride 110.0 H Carbon Dioxide 22 BUN 23 H Creatinine 1.0 Glucose 157 H Calcium 8.8 Liver Function 01/03/25 Range/Units 13:55 Total Bilirubin 0.44 (0.0-1.0) mg/dL AST 19 (15-37) U/L ALT 48 (30-65) U/L Alkaline Phosphatase 53 (50-136) U/L Albumin 3.0 L (3.4-5.0) g/dL Urine 12/31/24 08:20 Urine Color Yellow Urine Appearance Clear Ur Specific [place] 1.020 Urine Protein Negative Urine Glucose (UA) Normal Progress Note: A&P Assessment and Plan (1) Pneumonia: Assessment and Plan: 1. Admit 2. Continue Rocephin 3. D/C Azithromycin due to allergy, Add Doxycycline 4. D/C duonebs due to tachycardia, Add Xopenex 5. Tylenol for fever 6. Collect sputum for culture and gram stain 7. Maintenance fluids NS at 100ml/hr 8. Budesonide BID 9. Solumedrol IV Q8H 10. Supplemental Oxygen to maintain SpO2 > 92% Qualifiers: Laterality: right Lung location: upper lobe of lung Pneumonia type: due to unspecified organism Qualified Code(s): J18.9 - Pneumonia, unspecified organism (2) Elevated d-dimer: Assessment and Plan: 1. ABG (3) HTN (hypertension): Assessment and Plan: 1. Resume home antihypertensive medications 2. Vital Signs Q4H Qualifiers: Hypertension type: unspecified Qualified Code(s): I10 - Essential (primary) hypertension (4) Hypokalemia: Assessment and Plan: 1. Repeat serial labs (5) Hypoalbuminemia: (6) Anemia: Qualifiers: Anemia type: other cause Other causes of anemia: other cause, not classified Qualified Code(s): D64.89 - Other specified anemias Plan CT of Chest with and without contrast does not demonstrate a mass Fall Risk Details Tucker Fall Scale Risk Level: Moderate Fall Risk Current Medications: Current Medications Acetaminophen (Acetaminophen 500 Mg Tablet) 1,000 mg PO Q4H PRN PRN Reason: Fever OF 100.5 OR GREATER Last Admin: 01/03/25 08:55 Dose: 1,000 mg Budesonide (Budesonide 0.5 Mg/2 Ml Ampul.Neb) 0.5 mg INH RBID [facility] Last Admin: 01/03/25 07:23 Dose: 0.5 mg Docusate Sodium (Docusate Sodium 100 Mg Capsule) 100 mg PO DAILY PRN PRN Reason: Constipation Fluoxetine HCl (Fluoxetine Hcl 20 Mg Capsule) 20 mg PO DAILY [facility] Last Admin: 01/03/25 08:12 Dose: 20 mg Ceftriaxone Sodium 1 gm/ (Sodium Chloride) 50 mls @ 100 mls/hr IV Q12H [facility] Last Infusion: 01/03/25 09:26 Dose: Infused Doxycycline Hyclate 100 mg/ (Sodium Chloride) 100 mls @ 100 mls/hr IV BID [facility] Last Infusion: 01/03/25 09:04 Dose: Infused Ketorolac Tromethamine (Ketorolac 30 Mg/Ml Inj Vial) 30 mg IVP Q8H PRN PRN Reason: Moderate Pain SCALE 5-7 Stop: 01/05/25 12:59 Levalbuterol HCl (Levalbuterol Hcl 1.25 Mg/3 Ml Vial.Neb) 1.25 mg INH RQ6 [facility] Last Admin: 01/03/25 14:00 Dose: 1.25 mg Magnesium Hydroxide (Magnesium, Aluminum Hydroxide 30 Ml Oral.Susp) 30 ml PO DAILY PRN PRN Reason: Constipation Methylprednisolone Sodium Succinate (Methylprednisolone Sod Succ/Pf 40 Mg/Ml Vial) 40 mg INJ Q8H [facility] Last Admin: 01/03/25 09:04 Dose: 40 mg Morphine Sulfate (Morphine Sulfate 2 Mg/Ml Cartridge) 2 mg IV Q2H PRN PRN Reason: Moderate Pain SCALE 5-7 Last Admin: 01/01/25 01:38 Dose: 2 mg Ondansetron HCl (Ondansetron Hcl/Pf 4 Mg/2 Ml Vial) 4 mg INJ Q6H PRN PRN Reason: Nausea And Vomiting Pantoprazole Sodium (Pantoprazole Sodium 40 Mg Tablet.Dr) 40 mg PO DAILY [facility] Last Admin: 01/03/25 08:12 Dose: 40 mg Time Spent With Patient Time: Total time spent is greater than 50% in coordination of care (as documented) at patient's floor/unit and/or counseling patient: Time with patient: greater than 35 minutes
== END 2025-01-03 15:53 | disposition home or self-care (01) | DRG 195 ==
LOC: ED 08:01 → MS 08:01 → OBSVTOIN 09:20 → MS 10:30
PROVIDERS: ADMIT Nurse Practitioner; ATTEND Nurse Practitioner
DX: Z87.891 Personal history of nicotine dependence; Z79.899 Other long term (current) drug therapy; D64.89 Other specified anemias; E87.6 Hypokalemia; E66.812 Obesity, class 2; G89.29 Other chronic pain; Z79.891 Long term (current) use of opiate analgesic; E88.09 Other disorders of plasma-protein metabolism, not elsewhere classified; Z88.1 Allergy status to other antibiotic agents; J18.9 Pneumonia, unspecified organism; I10 Essential (primary) hypertension; M54.9 Dorsalgia, unspecified; R79.89 Other specified abnormal findings of blood chemistry; Z68.39 Body mass index [BMI] 39.0-39.9, adult; G47.30 Sleep apnea, unspecified